=== PATIENT | female | born 1960 | race Caucasian/White ===

== ENCOUNTER 2024-09-16 08:32 | Outpatient (RCR) | payer OTHER, SELFPAY | END 2024-09-16 23:59 | disposition home or self-care (01) | LOC: ROT 08:32 | PROVIDERS: ATTENDING PHYSICIAN Nurse Practitioner Adult Health | DX: M79.644 Pain in right finger(s) (principal); Z73.6 Limitation of activities due to disability; M62.81 Muscle weakness (generalized); M25.441 Effusion, right hand | CPT/HCPCS: 97018; 97166; 97535 ==

== ENCOUNTER → 2025-06-19 08:32 | Outpatient (REF) | payer OTHER, SELFPAY | LOC: RAD 08:32 | PROVIDERS: ATTENDING PHYSICIAN Nurse Practitioner Adult Health; FAMILY PHYSICIAN Nurse Practitioner Adult Health | DX: R19.01 Right upper quadrant abdominal swelling, mass and lump (principal) | CPT/HCPCS: 76700 ==